=== PATIENT | male | born 1960 | race Caucasian/White ===

== ENCOUNTER 2023-02-02 10:43 | Outpatient (CLI) | payer BC ==
[2023-02-01 12:43] LABS: ANION GAP 6 (8-16); BLOOD UREA NITROGEN 16 MG/DL (7-18); BUN/CREATININE RATIO 15.2 (10.0-20.0); CALCIUM 8.8 MG/DL (8.5-10.1); CHLORIDE 105 MMOL/L (99-107); CREATININE 1.05 MG/DL (0.60-1.10); GLUCOSE 138 MG/DL (70-104); POTASSIUM 3.9 MMOL/L (3.5-5.1); SODIUM 140 MMOL/L (135-145); TOTAL CARBON DIOXIDE 28.8 MMOL/L (24-32); eGFR 72 ML/MIN
[2023-02-02] MEDS ORDERED: iohexol 300mg/ml 100ml inj. ONE (10:52)
== END 2023-02-02 23:59 | disposition home or self-care (01) ==
LOC: RAD 10:43
PROVIDERS: ATTEND Surgery
DX: K63.0 Abscess of intestine (principal); M47.816 Spondylosis without myelopathy or radiculopathy, lumbar region
CPT/HCPCS: 36415; 74177; 80048; J3490; Q9967

== ENCOUNTER 2023-02-19 13:15 | Emergency (ER) | payer BC ==
[~2023-02-19] VITALS: Ht 175.3 cm; Wt 75.6 kg
[~2023-02-19 13:15] MED LIST: CEFD300C17 PO; INDO-12 PO
[2023-02-19 14:34] LABS: BASOPHILS # (AUTO) 0.2 X10'3 (0-0.2); BASOPHILS % (AUTO) 1.1 % (0-1); EOSINOPHILS # (AUTO) 0.2 X10'3 (0-0.9); EOSINOPHILS % (AUTO) 1.1 % (0-6); HEMATOCRIT 48.9 % (42.0-52.0); HEMOGLOBIN 16.3 g/dl (14.0-17.9); LYMPHOCYTES % (AUTO) 14.7 % (21-51); MEAN CORPUSCULAR HEMOGLOBIN 28.5 PG (27.0-31.0); MEAN CORPUSCULAR HGB CONC 33.3 g/dL (33.0-36.5); MEAN CORPUSCULAR VOLUME 85.8 FL (78-98); MONOCYTES # (AUTO) 1.3 X10'3 (0-0.9); MONOCYTES % (AUTO) 9.7 % (2-12); NEUTROPHILS % (AUTO) 73.4 % (42-75); PLATELET COUNT 435 X10'3 (140-440); RED BLOOD COUNT 5.71 X10'6 (4.70-6.10); RED CELL DISTRIBUTION WIDTH 13.4 % (11.5-14.5); WHITE BLOOD COUNT 13.6 X10'3 (4.5-11.0)
[2023-02-19 14:50] LABS: ALANINE AMINOTRANSFERASE 24 U/L (12-78); ALBUMIN 3.5 G/DL (3.4-5.0); ALBUMIN/GLOBULIN RATIO 0.8 (1.1-1.5); ALKALINE PHOSPHATASE 88 IU/L (46-116); ANION GAP 11 (8-16); ASPARTATE AMINO TRANSFERASE 14 U/L (10-37); BILIRUBIN,TOTAL 0.6 MG/DL (0.1-1.0); BLOOD UREA NITROGEN 12 MG/DL (7-18); BUN/CREATININE RATIO 14.3 (10.0-20.0); CALCIUM 9.6 MG/DL (8.5-10.1); CHLORIDE 101 MMOL/L (99-107); CREATININE 0.84 MG/DL (0.60-1.10); GLUCOSE 112 MG/DL (70-104); POTASSIUM 3.8 MMOL/L (3.5-5.1); SODIUM 137 MMOL/L (135-145); TOTAL CARBON DIOXIDE 24.9 MMOL/L (24-32); TOTAL PROTEIN 7.9 G/DL (6.4-8.2); eCRCL 94 ML/MIN; eGFR > 90 ML/MIN
[2023-02-19 15:50] VITALS: BP 149/105; PULSE 106; RESP 15; TEMP 99.7; O2SAT 98
[2023-02-19] MEDS ORDERED: HYDR-3965 PO (16:20)
[2023-02-19 16:21] LABS: BILIRUBIN,URINE NEGATIVE (Neg); CLARITY,URINE CLOUDY (Clear); COLOR,URINE YELLOW (Yellow); GLUCOSE, URINE NEGATIVE (Neg); KETONES,URINE TRACE mg/dl (Neg); LEUKOCYTE ESTERASE ,URINE NEGATIVE (Neg); NITRITES, URINE NEGATIVE (Neg); OCCULT BLOOD,URINE SMALL (Neg); PH,URINE 5.5 (4.8-8.0); PROTEIN,URINE NEGATIVE (Neg); UROBILINOGEN,URINE 0.2 E.U/dL (0.2-1.0)
[2023-02-19 16:37] LABS: UA COLLECTION TYPE CLN CATCH MIDSTREAM
[2023-02-19 16:38] LABS: CAL OXALATE CRYSTALS FEW /HPF (NEGATIVE); MUCUS STRANDS MANY /LPF (Neg); SQUAMOUS EPITHELIAL CELL,UR FEW /LPF (FEW)
[2023-02-19 16:39] LABS: BACTERIA,URINE FEW /HPF (Neg); HYALINE CASTS 0-3 /LPF (NEGATIVE); RBC,URINE 0-2 /HPF (0-2); WBC,URINE 0-4 /HPF (0-4)
[2023-02-19 16:40] LABS: TRANSITIONAL EPI CELLS,URINE FEW /HPF
== END 2023-02-19 16:34 | disposition home or self-care (01) ==
LOC: ER 13:15
DX: R22.33 Localized swelling, mass and lump, upper limb, bilateral (principal); M25.50 Pain in unspecified joint; Z79.2 Long term (current) use of antibiotics; Z79.899 Other long term (current) drug therapy
CPT/HCPCS: 36415; 80053; 81001; 84145; 85025; 99283

== ENCOUNTER 2023-02-22 05:35 | Inpatient (IN) | payer BC ==
[2023-02-15 15:45] LABS: BASOPHILS # (AUTO) 0.1 X10'3 (0-0.2); BASOPHILS % (AUTO) 1.3 % (0-1); EOSINOPHILS # (AUTO) 0.1 X10'3 (0-0.9); EOSINOPHILS % (AUTO) 1.3 % (0-6); LYMPHOCYTES # (AUTO) 1.6 X10'3 (1.1-4.8); LYMPHOCYTES % (AUTO) 20.6 % (21-51); MEAN CORPUSCULAR HEMOGLOBIN 28.5 PG (27.0-31.0); MEAN CORPUSCULAR HGB CONC 33.4 g/dL (33.0-36.5); MEAN CORPUSCULAR VOLUME 85.2 FL (78-98); MEAN PLATELET VOLUME 6.8 FL (7.4-10.4); MONOCYTES # (AUTO) 0.8 X10'3 (0-0.9); MONOCYTES % (AUTO) 9.8 % (2-12); NEUTROPHILS # (AUTO) 5.2 X10'3 (1.8-7.7); PRE OP HEMATOCRIT 42.8 % (42.0-52.0); PRE OP HEMOGLOBIN 14.3 g/dL (14.0-17.9); PRE OP PLATELET COUNT 409 X10'3 (140-440); PRE OP WHITE BLOOD COUNT 7.8 10'3 (4.8-10.8); RED BLOOD COUNT 5.02 X10'6 (4.70-6.10); RED CELL DISTRIBUTION WIDTH 13.3 % (11.5-14.5)
[2023-02-15 15:47] LABS: BILIRUBIN,URINE NEGATIVE (Neg); CLARITY,URINE CLEAR (Clear); COLOR,URINE YELLOW (Yellow); GLUCOSE, URINE NEGATIVE (Neg); KETONES,URINE NEGATIVE (Neg); LEUKOCYTE ESTERASE ,URINE NEGATIVE (Neg); NITRITES, URINE NEGATIVE (Neg); OCCULT BLOOD,URINE TRACE-INTACT (Neg); PROTEIN,URINE NEGATIVE (Neg); UROBILINOGEN,URINE 0.2 E.U/dL (0.2-1.0)
[2023-02-15 16:09] LABS: ALBUMIN 3.1 G/DL (3.4-5.0); ALBUMIN/GLOBULIN RATIO 0.8 (1.1-1.5); ALKALINE PHOSPHATASE 81 IU/L (46-116); BLOOD UREA NITROGEN 14 MG/DL (7-18); BUN/CREATININE RATIO 15.2 (10.0-20.0); CALCIUM 9.1 MG/DL (8.5-10.1); CHLORIDE 104 MMOL/L (99-107); CREATININE 0.92 MG/DL (0.60-1.10); PRE OP ALT 18 U/L (30-65); PRE OP ANION GAP 5 (8-16); PRE OP AST 15 U/L (10-37); PRE OP BILIRUB, TOTAL 0.3 MG/DL (0.0-1.0); PRE OP GLUCOSE 101 MG/DL (70-104); PRE OP POTASSIUM 3.9 MMOL/L (3.4-5.1); PRE OP SODIUM 138 MMOL/L (135-145); TOTAL CARBON DIOXIDE 29.3 MMOL/L (24-32); TOTAL PROTEIN 6.9 G/DL (6.4-8.2); eGFR 84 ML/MIN
[2023-02-15 16:28] LABS: UA COLLECTION TYPE NON-SPECIFIED
[2023-02-15 16:32] LABS: SQUAMOUS EPITHELIAL CELL,UR FEW /LPF (FEW)
[2023-02-15 16:33] LABS: WBC,URINE 0-4 /HPF (0-4)
[2023-02-15 16:34] LABS: BACTERIA,URINE FEW /HPF (Neg); MUCUS STRANDS FEW /LPF (Neg)
[2023-02-22] VITALS (45 sets, daily range): BP systolic 119–153; BP diastolic 63–92; PULSE 63–80; RESP 11–18; TEMP 97.4–98.4; O2SAT 92–98
[~2023-02-22] VITALS: Ht 175.3 cm; Wt 74.6 kg
[~2023-02-22 05:35] MED LIST changes: +HYDR-3965 PO; +ceFOXitin 2GM-NS 100mL ADDvant 100 ML IV ONE; +famotidine 20mg tablet PO ONE; +ringers solution, lacted 1,000 ML IV SCH
[2023-02-22] MEDS ORDERED: PRED5TAB PO (06:19)
[2023-02-22] MEDS ORDERED: LIDOcaine 1% (10mg/ml)w/preservative inj. 20ml MDV ONE (06:52)
[2023-02-22] MEDS ORDERED: BUPIVAcaine 2.5mg/ml inj 50ml vial (contains preservative) ONE (06:52)
[2023-02-22] MEDS ORDERED: LIDOcaine 2% jelly 6ml syringe ***for topical use only ONE (06:52)
[2023-02-22] MEDS ORDERED: iohexol 300 MG/1 ML 50ml polymer ONE (07:06)
[2023-02-22] MEDS ORDERED: midazolam 1 mg/ML 2ml injection ONE (07:24)
[2023-02-22] MEDS ORDERED: fentaNYL /PF 50mcg/ml 5ml ampule ONE (07:24)
[2023-02-22] MEDS ORDERED: dexamethasone sod phosphate 4mg/ml inj. ONE (07:26)
[2023-02-22] MEDS ORDERED: ondansetron/PF 4mg/2ml inj ONE (07:26)
[2023-02-22] MEDS ORDERED: LIDOcaine 2% (20mg/ml) 5ml vial ONE (07:26)
[2023-02-22] MEDS ORDERED: propofol inj 20 ML IV ONE (07:26)
[2023-02-22] MEDS ORDERED: rocuronium 10mg/ml inj IV ONE ×3 (07:26→09:37)
[2023-02-22] MEDS ORDERED: BUPIVAcaine 0.5% inj/PF 30 ML ONE (07:34)
[2023-02-22] MEDS ORDERED: BUPIVAcaine/PF 5 mg/ml 10ml ONE (07:34)
[2023-02-22] MEDS ORDERED: BUPIVACAINE liposomal/PF 13.3 MG/ML vial IM ONE (07:35)
[2023-02-22] MEDS ORDERED: acetaminophen 1,000mg/100ml IV 100 ML IV ONE (07:42)
[2023-02-22] MEDS ORDERED: naloxone 0.4 mg/ml inj IV PRN (07:50)
[2023-02-22] MEDS ORDERED: morphine 4 MG/ML inj SYRINge IV PRN (08:15)
[2023-02-22] MEDS ORDERED: ondansetron/PF 4mg/2ml inj IV PRN (08:15)
[2023-02-22] MEDS ORDERED: labetalol 20mg/4ml (5mg/ml) syringe IV PRN (08:15)
[2023-02-22] MEDS ORDERED: fentaNYL/PF 50MCG/1 ML 2ML syringe IV PRN (08:15)
[2023-02-22] MEDS ORDERED: ringers solution, lacted 1,000 ML IV SCH (08:15)
[2023-02-22] MEDS ORDERED: morphine 2 MG/ML inj. syringe IV PRN (08:15)
[2023-02-22] MEDS ORDERED: hydrALAZINE 20mg/ml inj. IV PRN (08:15)
[2023-02-22] MEDS ORDERED: neostigmine methylsulfate 1 MG/ML 10ml vial ONE (08:45)
[2023-02-22] MEDS ORDERED: glycopyrrolate 0.2mg/ml inj ONE (08:45)
[2023-02-22] MEDS ORDERED: sugammadex 200mg/2ml injection IV ONE (09:35)
[2023-02-22] MEDS ORDERED: fentaNYL/PF 50MCG/1 ML 2ML syringe ONE (09:36)
[2023-02-22] MEDS: fentaNYL/PF 50MCG/1 ML 2ML syringe IV PRN ×2 (10:43→11:26)
[2023-02-22] MEDS: HYDROmorph/NS 0.2 mg/ml PCA 100 ML IV SCH ×8 (10:53→23:00)
[2023-02-22] MEDS: docusate sod 100mg capsule PO SCH ×2 (15:11→20:00)
[2023-02-22] MEDS: sennosides/docusate sodium tablet PO SCH ×2 (15:12→20:00)
[2023-02-22] MEDS: normal saline 1000ml 1,000 ML IV SCH ×3 (15:32→16:44)
[2023-02-22] MEDS: ondansetron/PF 4mg/2ml inj IV PRN (15:44)
[2023-02-22] MEDS: proCHLORperazine 10 MG/2 ml inj IV PRN (22:11)
[2023-02-23] VITALS (7 sets, daily range): BP systolic 121–139; BP diastolic 60–71; PULSE 78–83; RESP 16; TEMP 97.4–98.6; O2SAT 96–97
[2023-02-23] MEDS: normal saline 1000ml 1,000 ML IV SCH ×4 (00:36→20:39)
[2023-02-23] MEDS: HYDROmorph/NS 0.2 mg/ml PCA 100 ML IV SCH ×9 (01:00→23:00)
[2023-02-23 06:40] LABS: BASOPHILS % (AUTO) 0.1 % (0-1); EOSINOPHILS % (AUTO) 0 % (0-6); HEMATOCRIT 37.7 % (42.0-52.0); HEMOGLOBIN 12.7 g/dl (14.0-17.9); LYMPHOCYTES # (AUTO) 1.1 X10'3 (1.1-4.8); MEAN CORPUSCULAR HEMOGLOBIN 28.7 PG (27.0-31.0); MEAN CORPUSCULAR HGB CONC 33.8 g/dL (33.0-36.5); MEAN CORPUSCULAR VOLUME 84.9 FL (78-98); MEAN PLATELET VOLUME 6.6 FL (7.4-10.4); MONOCYTES % (AUTO) 6.8 % (2-12); NEUTROPHILS % (AUTO) 85.1 % (42-75); PLATELET COUNT 375 X10'3 (140-440); RED BLOOD COUNT 4.45 X10'6 (4.70-6.10); RED CELL DISTRIBUTION WIDTH 13.4 % (11.5-14.5); WHITE BLOOD COUNT 14.1 X10'3 (4.5-11.0)
[2023-02-23 07:16] LABS: ALBUMIN 2.6 G/DL (3.4-5.0); ANION GAP 9 (8-16); BLOOD UREA NITROGEN 13 MG/DL (7-18); BUN/CREATININE RATIO 14.1 (10.0-20.0); CALCIUM 8.8 MG/DL (8.5-10.1); CHLORIDE 106 MMOL/L (99-107); CREATININE 0.92 MG/DL (0.60-1.10); GLUCOSE 121 MG/DL (70-104); POTASSIUM 4.3 MMOL/L (3.5-5.1); SODIUM 140 MMOL/L (135-145); TOTAL CARBON DIOXIDE 25.2 MMOL/L (24-32); eCRCL 85 ML/MIN; eGFR 84 ML/MIN
[2023-02-23] MEDS: sennosides/docusate sodium tablet PO SCH ×2 (08:00→20:00)
[2023-02-23] MEDS: proCHLORperazine 10 MG/2 ml inj IV PRN (08:22)
[2023-02-23] MEDS: docusate sod 100mg capsule PO SCH ×2 (08:23→20:35)
[2023-02-23] MEDS ORDERED: PCA WASTE DOCUMENTATION 1 MG ML MC SCH (11:30)
[2023-02-24] MEDS: HYDROmorph/NS 0.2 mg/ml PCA 100 ML IV SCH ×6 (01:00→11:00)
[2023-02-24 06:54] LABS: ALBUMIN 2.4 G/DL (3.4-5.0); ANION GAP 5 (8-16); BLOOD UREA NITROGEN 11 MG/DL (7-18); BUN/CREATININE RATIO 12.8 (10.0-20.0); CALCIUM 8.5 MG/DL (8.5-10.1); CHLORIDE 105 MMOL/L (99-107); CREATININE 0.86 MG/DL (0.60-1.10); GLUCOSE 95 MG/DL (70-104); POTASSIUM 3.7 MMOL/L (3.5-5.1); SODIUM 141 MMOL/L (135-145); TOTAL CARBON DIOXIDE 30.8 MMOL/L (24-32); eCRCL 91 ML/MIN; eGFR > 90 ML/MIN
[2023-02-24 06:57] LABS: BASOPHILS % (AUTO) 0.3 % (0-1); EOSINOPHILS % (AUTO) 0.2 % (0-6); HEMATOCRIT 34.7 % (42.0-52.0); HEMOGLOBIN 11.9 g/dl (14.0-17.9); LYMPHOCYTES # (AUTO) 2.5 X10'3 (1.1-4.8); LYMPHOCYTES % (AUTO) 19.9 % (21-51); MEAN CORPUSCULAR HEMOGLOBIN 29.2 PG (27.0-31.0); MEAN CORPUSCULAR HGB CONC 34.3 g/dL (33.0-36.5); MEAN CORPUSCULAR VOLUME 85.1 FL (78-98); MEAN PLATELET VOLUME 6.8 FL (7.4-10.4); MONOCYTES # (AUTO) 1.1 X10'3 (0-0.9); MONOCYTES % (AUTO) 8.9 % (2-12); NEUTROPHILS # (AUTO) 8.8 X10'3 (1.8-7.7); NEUTROPHILS % (AUTO) 70.7 % (42-75); PLATELET COUNT 344 X10'3 (140-440); RED BLOOD COUNT 4.07 X10'6 (4.70-6.10); RED CELL DISTRIBUTION WIDTH 13.3 % (11.5-14.5); WHITE BLOOD COUNT 12.5 X10'3 (4.5-11.0)
[2023-02-24 07:25] VITALS: RESP 16
[2023-02-24] MEDS: sennosides/docusate sodium tablet PO SCH ×2 (07:41→20:02)
[2023-02-24] MEDS: docusate sod 100mg capsule PO SCH ×2 (07:41→20:02)
[2023-02-24] MEDS: normal saline 1000ml 1,000 ML IV SCH ×4 (07:50→18:00)
[2023-02-24 08:06] VITALS: BP 132/69; PULSE 62; RESP 16; TEMP 97.4; O2SAT 98
[2023-02-24] MEDS: ondansetron/PF 4mg/2ml inj IV PRN (09:39)
[2023-02-24 10:55] VITALS: BP 141/75; PULSE 66; RESP 18; TEMP 98; O2SAT 98
[2023-02-24] MEDS ORDERED: traMADol 50MG tablet PO PRN (12:40)
[2023-02-24 18:00] VITALS: BP 149/78; PULSE 66; RESP 18; TEMP 98.6; O2SAT 96
[2023-02-24 22:00] VITALS: BP 123/69; PULSE 52; RESP 18; TEMP 98.3; O2SAT 95
[2023-02-25] MEDS: ondansetron/PF 4mg/2ml inj IV PRN (04:16)
[2023-02-25 06:32] LABS: BASOPHILS # (AUTO) 0.1 X10'3 (0-0.2); EOSINOPHILS # (AUTO) 0.2 X10'3 (0-0.9); EOSINOPHILS % (AUTO) 2.2 % (0-6); HEMATOCRIT 35.7 % (42.0-52.0); HEMOGLOBIN 12.2 g/dl (14.0-17.9); LYMPHOCYTES # (AUTO) 1.9 X10'3 (1.1-4.8); LYMPHOCYTES % (AUTO) 22.2 % (21-51); MEAN CORPUSCULAR HEMOGLOBIN 29.2 PG (27.0-31.0); MEAN CORPUSCULAR HGB CONC 34.2 g/dL (33.0-36.5); MEAN CORPUSCULAR VOLUME 85.4 FL (78-98); MEAN PLATELET VOLUME 7.1 FL (7.4-10.4); MONOCYTES # (AUTO) 0.9 X10'3 (0-0.9); MONOCYTES % (AUTO) 9.9 % (2-12); NEUTROPHILS # (AUTO) 5.7 X10'3 (1.8-7.7); NEUTROPHILS % (AUTO) 64.7 % (42-75); PLATELET COUNT 344 X10'3 (140-440); RED BLOOD COUNT 4.18 X10'6 (4.70-6.10); RED CELL DISTRIBUTION WIDTH 13.6 % (11.5-14.5); WHITE BLOOD COUNT 8.8 X10'3 (4.5-11.0)
[2023-02-25 06:47] LABS: ALBUMIN 2.4 G/DL (3.4-5.0); ANION GAP 7 (8-16); BLOOD UREA NITROGEN 9 MG/DL (7-18); BUN/CREATININE RATIO 11.4 (10.0-20.0); CALCIUM 8.6 MG/DL (8.5-10.1); CHLORIDE 105 MMOL/L (99-107); CREATININE 0.79 MG/DL (0.60-1.10); GLUCOSE 93 MG/DL (70-104); POTASSIUM 3.5 MMOL/L (3.5-5.1); SODIUM 141 MMOL/L (135-145); TOTAL CARBON DIOXIDE 29.1 MMOL/L (24-32); eCRCL 99 ML/MIN; eGFR > 90 ML/MIN
[2023-02-25 06:53] VITALS: BP 140/71; PULSE 52; RESP 14; TEMP 98.1; O2SAT 96
[2023-02-25] MEDS: docusate sod 100mg capsule PO SCH (08:00)
[2023-02-25] MEDS: sennosides/docusate sodium tablet PO SCH (08:00)
[2023-02-25] MEDS ORDERED: indomethacin 25mg capsule PO SCH (08:40)
[2023-02-25] MEDS ORDERED: predniSONE 5mg tablet PO SCH (08:41)
[2023-02-25] MEDS ORDERED: cefpodoxime proxetil 100mg tablet PO SCH (09:00)
[2023-02-25 09:52] VITALS: RESP 16
[2023-02-25 11:28] VITALS: BP 164/80; PULSE 51; RESP 16; TEMP 98.1; O2SAT 99
[2023-02-25] MEDS ORDERED: ondansetron 4mg rapidly disintigrating tab PO PRN (13:00)
== END 2023-02-25 15:20 | disposition home or self-care (01) | DRG 330 ==
LOC: PAS IN 05:35 → UNDOADMIN 05:35 → ORTHO 4S 15:40
PROVIDERS: ADMIT Surgery; ATTEND Surgery
PROC: 0DNW4ZZ Release Peritoneum, Percutaneous Endoscopic Approach (ICD-10-PCS; 2023-02-22)
PROC: 3E0T3BZ Introduction of Anesthetic Agent into Peripheral Nerves and Plexi, Percutaneous Approach (ICD-10-PCS; 2023-02-22)
PROC: 0DB80ZZ Excision of Small Intestine, Open Approach (ICD-10-PCS; principal; 2023-02-22 07:23)
PROC: 0T788DZ Dilation of Bilateral Ureters with Intraluminal Device, Via Natural or Artificial Opening Endoscopic (ICD-10-PCS; 2023-02-22 07:23)
DX: K63.89 Other specified diseases of intestine (principal); K63.0 Abscess of intestine; K66.0 Peritoneal adhesions (postprocedural) (postinfection); K56.609 Unspecified intestinal obstruction, unspecified as to partial versus complete obstruction; Z79.899 Other long term (current) drug therapy; Z88.5 Allergy status to narcotic agent
CPT/HCPCS: Z7506; Z7508; 36415; 76000; 80048; 80053; 81001; 82948; 85025; 86885; 86900; 86901; 86920; 87081; 93005; A4215; A4314; A4618; A5200; A6213; A6253; A6446; A6449; A7000; C1758; C9290; G0378; J0131; J0694; J0780; J1100; J1170; J2250; J2270; J2405; J2704; J2710; J3010; J3490; J7030; J7040; J7050; J7120; J7512; Q9967; S0020